=== PATIENT | male | born 1990 | race Caucasian/White ===

== ENCOUNTER → 2017-02-03 | Outpatient (CLI) | payer BC | LOC: FIMAGING 07:59 | PROVIDERS: ATTEND Neurological Surgery | DX: M51.24 Other intervertebral disc displacement, thoracic region (principal); M54.12 Radiculopathy, cervical region; Z98.1 Arthrodesis status ==

== ENCOUNTER → 2017-02-06 | Outpatient (CLI) | payer BC | LOC: FIMAGING 08:49 | PROVIDERS: ATTEND Physician Assistant | DX: M47.892 Other spondylosis, cervical region (principal); Z98.1 Arthrodesis status ==

== ENCOUNTER → 2017-11-05 | Outpatient (CLI) | payer BC | LOC: FIMAGING 15:48 | PROVIDERS: ATTEND Physician Assistant | DX: Z98.1 Arthrodesis status (principal) ==

== ENCOUNTER → 2018-12-04 | Outpatient (CLI) | payer BC | LOC: FIMAGING 11:29 | PROVIDERS: ATTEND Psychiatry & Neurology Neurology | DX: R51 Headache (principal) | CPT/HCPCS: 70551-PN ==